=== PATIENT | female | born 1975 | race Caucasian/White ===

== ENCOUNTER → 2021-06-05 13:15 | Outpatient (CLI) | payer BC, SELFPAY ==
[2021-06-05 15:44] LABS: Amphetamine/Metha Screen,Urine Negative ng/ml (<1000)
[2021-06-05 15:45] LABS: Barbiturates Screen,Urine Negative ng/ml (<200)
[2021-06-05 15:46] LABS: Cannabinoid Screen,Urine Negative ng/ml (<50)
[2021-06-05 15:47] LABS: Cocaine Screen,Urine Negative ng/ml (<300); Methadone Screen,Urine Negative ng/ml (<300)
[2021-06-05 15:48] LABS: Opiate Screen,Urine Negative ng/ml (<300); Phencyclidine Screen,Urine Negative ng/ml (<25)
[2021-06-05 15:57] LABS: Benzodiazepines Screen,Urine Negative ng/ml (<200)
== END ==
PROVIDERS: Visit Provider Family Medicine
DX: Z79.899 Other long term (current) drug therapy (principal)
CPT/HCPCS: 80305

== ENCOUNTER → 2021-08-25 14:29 | Outpatient (CLI) | payer BC, SELFPAY ==
[2021-08-25 15:18] LABS: Creatinine,Urine Random 95 mg/dL (Not Estab.)
[2021-08-25 15:19] LABS: Microalbumin/Creatinine Ratio 7.7
[2021-08-25 15:26] LABS: Amphetamine/Metha Screen,Urine Negative ng/ml (<1000); Barbiturates Screen,Urine Negative ng/ml (<200)
[2021-08-25 15:27] LABS: Benzodiazepines Screen,Urine Negative ng/ml (<200)
[2021-08-25 15:28] LABS: Cannabinoid Screen,Urine Negative ng/ml (<50); Cocaine Screen,Urine Negative ng/ml (<300)
[2021-08-25 15:29] LABS: Methadone Screen,Urine Negative ng/ml (<300); Opiate Screen,Urine Negative ng/ml (<300)
[2021-08-25 15:31] LABS: Phencyclidine Screen,Urine Negative ng/ml (<25)
[2021-08-25 15:49] LABS: Alanine Aminotransferase 54 U/L (12-78); Albumin Level 4.2 g/dl (3.5-5.0); Albumin/Globulin Ratio 1.4 (1.1-1.8); Alkaline Phosphatase 158 U/L (38-126); Anion Gap 13.3 mEq/L (5-15); Aspartate Amino Transferase 54 U/L (14-36); Bilirubin,Total 0.4 mg/dl (0.2-1.3); Blood Urea Nitrogen 12 mg/dl (7-17); Calcium 9.9 mg/dl (8.4-10.2); Carbon Dioxide 26 mmol/L (22.0-30.0); Chloride 104 mmol/L (98-107); Chol/HDL Ratio 6.6 (1-3.5); Cholesterol 211 mg/dl (140-200); Estimated Glomerular Filt Rate 90 ml/min (>60); GFR (African American) 109 ML/MIN (>60); Globulin 3.1 g/dL (1.3-3.2); Glucose 83 mg/dl (74-100); HDL Cholesterol 32 mg/dl (40-60); Potassium 4.3 mmoL/L (3.5-5.1); Sodium 139 mmol/L (136-145); Total Protein,Serum 7.3 g/dl (6.3-8.2); Triglycerides 266 mg/dl (30-150); VLDL Cholesterol 53 mg/dL (0-40)
[2021-08-25 16:00] LABS: Direct LDL Cholesterol 131.24 mg/dL (100-129)
[2021-08-25 16:06] LABS: T4 (Thyroxine) 7.7 ug/dl (5.53-11.0)
[2021-08-25 16:07] LABS: 25-OH Vitamin D, Total 48.3 ng/mL (30-100)
[2021-08-25 16:20] LABS: Thyroid Stimulating Hormone 1.06 uIU/mL (0.465-4.68)
[2021-08-28 12:09] LABS: C-Peptide 8.7 ng/mL (1.1-4.4)
== END ==
PROVIDERS: Visit Provider Family Medicine
DX: R55 Syncope and collapse (principal); Z79.899 Other long term (current) drug therapy
CPT/HCPCS: 80053; 80061; 80305; 82043; 82306; 82570; 84436; 84443; 84681

== ENCOUNTER → 2021-08-26 08:59 | Outpatient (CLI) | payer BC, SELFPAY ==
[2021-08-26 09:02] LABS: MANUAL DIFFERENTIAL MANUAL DIFFERENTIAL (MANUAL DIFF)
[2021-08-26 09:08] LABS: Basophils # 0.2 K/mm3 (0-0.2); Basophils % 1.8 % (0.1-2.0); Eosinophils # 0.5 K/mm3 (0.0-0.4); Eosinophils % 4.9 % (0.1-12.0); Hematocrit 48.8 % (37.0-47.0); Hemoglobin 15.9 g/dL (12.2-16.2); Lymphocytes # 2.6 K/mm3 (0.7-4.5); Lymphocytes % 27.7 % (10-50); Mean Corpuscular HGB Conc 32.7 g/dL (31.8-35.4); Mean Corpuscular Hemoglobin 30.7 pg (27.0-31.2); Mean Corpuscular Volume 94.1 fl (81-99); Mean Platelet Volume 7.8 fl (7.4-10.4); Monocytes # 0.4 K/mm3 (0.1-1.0); Monocytes % 4.4 % (1.7-9.3); Neutrophils # 5.8 K/mm3 (1.8-7.8); Neutrophils % 61.2 % (37.0-80.0); Platelet Count 479 K/mm3 (142-424); Red Blood Count 5.19 M/mm3 (4.20-5.40); Red Cell Distribution Width 14.4 % (11.5-17.5); White Blood Count 9.5 K/mm3 (4.8-10.8)
[2021-08-26 09:31] LABS: Eosinophils % 4 % (0-3); Lymphocytes % 29 % (10-50); Monocytes % 5 % (2-9); Neutrophils % 62 % (42-76); RBC Morphology Normal; Total Cells Counted 100
[2021-08-26 09:32] LABS: Platelet Estimate Slight Increase
[2021-08-26 09:46] LABS: Hemoglobin A1C 5.9 % (4.0-6.0)
== END ==
PROVIDERS: Visit Provider Family Medicine
DX: F32.9 Major depressive disorder, single episode, unspecified (principal); E78.5 Hyperlipidemia, unspecified; R53.83 Other fatigue
CPT/HCPCS: 83036; 85007; 85014; 85018; 85048; 85049

== ENCOUNTER → 2021-11-06 14:44 | Outpatient (CLI) | payer BC, SELFPAY ==
[2021-11-06 15:41] LABS: Basophils # 0.1 K/mm3 (0-0.2); Basophils % 0.7 % (0.1-2.0); Eosinophils # 0.4 K/mm3 (0.0-0.4); Eosinophils % 4.2 % (0.1-12.0); Hematocrit 47.2 % (37.0-47.0); Hemoglobin 16.2 g/dL (12.2-16.2); Lymphocytes # 2.8 K/mm3 (0.7-4.5); Lymphocytes % 32.6 % (10-50); Mean Corpuscular HGB Conc 34.3 g/dL (31.8-35.4); Mean Corpuscular Hemoglobin 31.9 pg (27.0-31.2); Mean Corpuscular Volume 93.2 fl (81-99); Monocytes # 0.4 K/mm3 (0.1-1.0); Monocytes % 4.6 % (1.7-9.3); Neutrophils # 5.1 K/mm3 (1.8-7.8); Neutrophils % 57.9 % (37.0-80.0); Platelet Count 423 K/mm3 (142-424); Red Blood Count 5.07 M/mm3 (4.20-5.40); Red Cell Distribution Width 13.7 % (11.5-17.5); White Blood Count 8.7 K/mm3 (4.8-10.8)
[2021-11-06 21:04] LABS: Chloride 104 mmol/L (98-107); Potassium 4.1 mmoL/L (3.5-5.1); Sodium 142 mmol/L (136-145)
[2021-11-06 21:06] LABS: Blood Urea Nitrogen 16 mg/dl (7-17); Estimated Glomerular Filt Rate 67 ml/min (>60); GFR (African American) 81 ML/MIN (>60)
[2021-11-06 21:07] LABS: Alanine Aminotransferase 64 U/L (12-78); Albumin Level 4.5 g/dl (3.5-5.0); Albumin/Globulin Ratio 1.5 (1.1-1.8); Alkaline Phosphatase 153 U/L (38-126); Anion Gap 14.1 mEq/L (5-15); Aspartate Amino Transferase 59 U/L (14-36); Bilirubin,Total 0.4 mg/dl (0.2-1.3); Calcium 9.8 mg/dl (8.4-10.2); Carbon Dioxide 28 mmol/L (22.0-30.0); Globulin 3.1 g/dL (1.3-3.2); Glucose 91 mg/dl (74-100); Total Protein,Serum 7.6 g/dl (6.3-8.2)
[2021-11-08 10:22] LABS: Insulin Level Total 52.1 uIU/mL (2.6-24.9)
== END ==
PROVIDERS: Visit Provider Family Medicine
DX: Z00.00 Encounter for general adult medical examination without abnormal findings (principal); Z79.899 Other long term (current) drug therapy
CPT/HCPCS: 80053; 82533; 83525; 85025

== ENCOUNTER → 2021-11-21 14:07 | Outpatient (CLI) | payer BC, SELFPAY | PROVIDERS: Visit Provider Family Medicine | DX: Z20.822 Contact with and (suspected) exposure to COVID-19 (principal); R05.9 Cough, unspecified | CPT/HCPCS: C9803; U0003; U0005 ==

== ENCOUNTER → 2022-12-24 23:30 | Outpatient (CLI) | payer BC, SELFPAY ==
[2022-12-24 19:08] LABS: Alanine Aminotransferase 46 U/L (12-78); Albumin Level 4.3 g/dl (3.5-5.0); Albumin/Globulin Ratio 1.4 (1.1-1.8); Alkaline Phosphatase 161 U/L (38-126); Anion Gap 10.7 mEq/L (5-15); Aspartate Amino Transferase 48 U/L (14-36); Bilirubin,Total 0.5 mg/dl (0.2-1.3); Blood Urea Nitrogen 14 mg/dl (7-17); Calcium 8.9 mg/dl (8.4-10.2); Carbon Dioxide 30 mmol/L (22.0-30.0); Chloride 104 mmol/L (98-107); Estimated Glomerular Filt Rate 59 ml/min (>60); GFR (African American) 72 ML/MIN (>60); Globulin 3.1 g/dL (1.3-3.2); Glucose 83 mg/dl (74-100); Potassium 3.7 mmoL/L (3.5-5.1); Sodium 141 mmol/L (136-145); Total Protein,Serum 7.4 g/dl (6.3-8.2)
[2022-12-24 19:32] LABS: Hemoglobin A1C 6.5 % (4.0-6.0)
[2022-12-24 19:37] LABS: Thyroid Stimulating Hormone 1.74 uIU/mL (0.465-4.68)
== END ==
PROVIDERS: PCP Family Medicine; Visit Provider Family Medicine
DX: R53.83 Other fatigue (principal); R73.03 Prediabetes
CPT/HCPCS: 80053; 83036; 84443

== ENCOUNTER → 2023-04-30 23:21 | Outpatient (CLI) | payer BC, SELFPAY | PROVIDERS: PCP Family Medicine; Visit Provider Family Medicine | DX: B02.9 Zoster without complications (principal); B99.9 Unspecified infectious disease | CPT/HCPCS: 87070; 87205 ==

== ENCOUNTER → 2023-08-15 23:10 | Outpatient (CLI) | payer BC, SELFPAY ==
[2023-08-15 18:48] LABS: Chol/HDL Ratio 5.3 (1-3.5); Cholesterol 222 mg/dl (140-200); HDL Cholesterol 42 mg/dl (40-60); Triglycerides 254 mg/dl (30-150); VLDL Cholesterol 51 mg/dL (0-40)
[2023-08-15 18:59] LABS: Direct LDL Cholesterol 132.55 mg/dL (100-129)
== END ==
PROVIDERS: PCP Family Medicine; Visit Provider Family Medicine
DX: E78.5 Hyperlipidemia, unspecified (principal)
CPT/HCPCS: 80061